=== PATIENT | female | born 1985 | race Two or more races ===

== ENCOUNTER 2017-08-13 10:51 | Outpatient (CLI) | payer OTHER ==
[~2017-08-13] VITALS: Ht 152.4 cm; Wt 68.0 kg
== END 2017-08-13 11:10 | disposition home or self-care (01) ==
LOC: OFIC 805 10:51
DX: R04.0 Epistaxis (principal); S02.2XXS Fracture of nasal bones, sequela; X58.XXXS Exposure to other specified factors, sequela

== ENCOUNTER 2019-05-07 22:09 | Emergency (ER) | payer OTHER ==
[~2019-05-07] VITALS: Ht 152.4 cm; Wt 70.3 kg
[2019-05-08] MEDS ORDERED: KETO10TA2 PO (07:02)
== END 2019-05-08 07:15 | disposition home or self-care (01) ==
LOC: ER 22:09
DX: N83.291 Other ovarian cyst, right side (principal); R10.2 Pelvic and perineal pain

== ENCOUNTER 2019-10-29 13:59 | Outpatient (CLI) | payer OTHER ==
[~2019-10-29 13:59] MED LIST: KETO10TA2 PO
== END 2019-10-29 14:10 | disposition home or self-care (01) ==
LOC: SONOGRAMA 13:59
PROVIDERS: ATTEND Obstetrics & Gynecology
DX: N60.11 Diffuse cystic mastopathy of right breast (principal); N60.12 Diffuse cystic mastopathy of left breast

== ENCOUNTER 2021-03-03 14:44 | Emergency (ER) | payer OTHER ==
[~2021-03-03] VITALS: Ht 152.4 cm; Wt 70.8 kg
== END 2021-03-03 17:40 | disposition home or self-care (01) ==
LOC: ER 14:44
DX: T78.40XA Allergy, unspecified, initial encounter (principal)

== ENCOUNTER 2024-10-30 10:45 | Emergency (ER) | payer OTHER ==
[~2024-10-30] VITALS: Ht 152.4 cm; Wt 65.3 kg
[2024-10-30] MEDS ORDERED: INTESTINEX680 M1 (10:50)
[2024-10-30] MEDS ORDERED: 0.9 % SODIUM CHLORIDE 1,000 ML IV SCH (12:15)
[2024-10-30] MEDS ORDERED: HYOSCYAMINE SULFATE 0.125 MG TAB.SUBL SL ONE (12:15)
[2024-10-30] MEDS ORDERED: METRONIDAZOLE/SODIUM CHLORIDE 500 MG/100 ML PIGGYBACK IV ONE ×2 (12:15→12:23)
[2024-10-30] MEDS ORDERED: HYOSCYAMINE SULFATE 0.125 MG TAB.SUBL ONE (12:23)
[2024-10-30 13:10] LABS: BASO % 0.3 % (0.1-1.2); EOS # 0.05 (0.04-0.54); EOS % 0.5 % (0.7-7.0); HEMATOCRIT 36.5 % (34.1-44.9); HEMOGLOBIN 12.4 g/dL (11.2-15.7); LYMPH # 2.67 (1.18-3.74); LYMPH % 27.5 % (19.3-53.1); MEAN CORPUSCULAR HEMOGLOBIN 30.8 pg (25.6-32.2); MONO # 0.45 (0.24-0.82); MONO % 4.6 % (4.7-12.5); NEUT # 6.49 (1.56-6.13); NEUT % 66.8 % (34.0-71.1); PLATELET COUNT 340 K/uL (163-369); RED BLOOD COUNT 4.02 M/uL (3.93-5.22)
[2024-10-30 13:32] LABS: URINE APPEARANCE Clear; URINE BILIRRUBIN Negative (NEGATIVE); URINE BLOOD Negative; URINE COLOR Yellow; URINE GLUCOSE Negative (NEGATIVE); URINE KETONE Negative (NEGATIVE); URINE LEUKOCYTE Small; URINE NITRATE Negative; URINE PROTEIN Negative (NEGATIVE)
[2024-10-30 13:36] LABS: URINE BACTERIA 1527.5 uL (0.0-1933); URINE RBC 4.8 uL (0.0-20.8); URINE WBC 50.8 uL (0.0-23.2)
[2024-10-30 13:39] LABS: URINE CAST 0.14 uL (0.0-1.40)
[2024-10-30 13:45] LABS: ALBUMIN 3.9 gm/dL (3.4-5.0); BILIRUBIN TOTAL 0.39 mg/dL (0.3-1.2); CALCIUM 9.5 mg/dL (8.5-10.1); CREATININE SERUM 0.73 mg/dL (0.55-1.02); GFR 88.75; GLOBULINA 4.3 G/DL (2.4-3.5); POTASSIUM 4.49 mEq/L (3.5-5.1); TOTAL PROTEIN 8.2 gm/dL (6.4-8.2)
[2024-10-30 14:01] LABS: URINE YEAST FEW /hpf
== END 2024-10-30 18:37 | disposition home or self-care (01) ==
LOC: ER 10:45
PROVIDERS: Emergency Medicine
DX: K58.9 Irritable bowel syndrome, unspecified (principal); E86.0 Dehydration; R19.7 Diarrhea, unspecified